=== PATIENT | male | born 1990 | race Two or more races ===

== ENCOUNTER 2021-11-19 19:29 | Emergency (ER) | payer OTHER ==
[~2021-11-19] VITALS: Ht 165.1 cm; Wt 95.3 kg
== END 2021-11-20 01:46 | disposition home or self-care (01) ==
LOC: ER 19:29
DX: N20.0 Calculus of kidney (principal); R10.13 Epigastric pain

== ENCOUNTER 2021-11-24 15:27 | Emergency (ER) | payer OTHER ==
[~2021-11-24] VITALS: Ht 165.1 cm; Wt 86.2 kg
[2021-11-24] MEDS ORDERED: TYLENOL (16:04)
[2021-11-24] MEDS ORDERED: PEPCID AC20 MG PO (20:09)
[2021-11-24] MEDS ORDERED: CARAFATE1 GM PO (20:09)
[2021-11-24] MEDS ORDERED: LEVSIN/SL0.125 MG SL (20:09)
== END 2021-11-24 20:18 | disposition home or self-care (01) ==
LOC: ER 15:27
DX: K29.70 Gastritis, unspecified, without bleeding (principal)

== ENCOUNTER 2025-02-04 23:40 | Emergency (ER) | payer OTHER ==
[~2025-02-04] VITALS: Ht 152.4 cm; Wt 86.2 kg
[~2025-02-04 23:40] MED LIST: CARAFATE1 GM PO; LEVSIN/SL0.125 MG SL; PEPCID AC20 MG PO; TYLENOL
[2025-02-05] MEDS ORDERED: CEFTRIAXONE SODIUM 1,000 MG VIAL IM ONE (01:15)
[2025-02-05] MEDS ORDERED: CEFTRIAXONE SODIUM 1,000 MG VIAL ONE (01:15)
[2025-02-05] MEDS ORDERED: DIPHTH,PERTUSS(ACELL),TET VAC 0.5 ML SYRINGE IM ONE (01:15)
[2025-02-05] MEDS ORDERED: DEXAMETHASONE SODIUM PHOSPHATE 4 MG/ML VIAL IM ONE (01:15)
[2025-02-05] MEDS ORDERED: TETANUS & DIPHTHERIA TOX,ADULT 0.5 ML VIAL IM ONE (01:15)
[2025-02-05] MEDS ORDERED: LIDOCAINE HCL 1% 10ML VIAL ONE (01:17)
[2025-02-05] MEDS ORDERED: PEPCID AC20 MG PO (01:25)
[2025-02-05] MEDS ORDERED: CEPHALEXIN500 M1 PO (01:25)
[2025-02-05] MEDS ORDERED: DEXAMETHASONE4 MG PO (01:25)
[2025-02-05] MEDS ORDERED: NASAL MIST126 ML NASAL (01:25)
[2025-02-05] MEDS ORDERED: IBU600 MG PO (01:25)
== END 2025-02-05 02:27 | disposition home or self-care (01) ==
LOC: ER 23:41
DX: S61.214A Laceration without foreign body of right ring finger without damage to nail, initial encounter (principal); W25.XXXA Contact with sharp glass, initial encounter; Y93.89 Activity, other specified; Y92.89 Other specified places as the place of occurrence of the external cause; Y99.8 Other external cause status
CPT/HCPCS: 12001; 90471; 90714; J1670